=== PATIENT | female | born 1985 | race Caucasian/White ===

== ENCOUNTER → 2023-08-02 09:08 | Outpatient (CLI) | payer OTHER, SELFPAY ==
--- NOTE | 2023-08-02 | DI.MRI.S_ITS ---
PROCEDURE: MR KNEE RT WO CON INDICATIONS: RIGHT KNEE PAIN TECHNIQUE: Noncontrast sagittal PD fast spin echo and T2 fast spin echo with fat saturation, sagittal 3-D FLASH with fat saturation; coronal T1 spin echo and PD fast spin echo with fat saturation, and axial PD fast spin echo with fat saturation through the knee. COMPARISON: None. FINDINGS: Image quality: Excellent. Menisci: The medial and lateral menisci demonstrate normal morphology and internal signal. The meniscal root ligaments appear intact. Cruciate ligaments: The anterior and posterior cruciate ligaments appear intact. Medial structures: The medial collateral ligament appears intact. Visualized portions of the pes anserinus tendons appear normal. No abnormal bursal fluid. Lateral structures: The lateral collateral ligament demonstrates low-grade tearing at the femoral origin. The long and short heads of the biceps femoris tendon appear intact. The popliteus tendon appears normal. Iliotibial band appears normal. Anterior structures: The quadriceps and patellar tendons appear intact. Patellar alignment is normal. Mild lateral ventral trochlear prominence. Mild edema in the superolateral aspect of the infrapatellar fat pad. Bones and cartilage: No bone marrow contusions or fractures. Red marrow reconversion within the distal femur and proximal tibia. Moderate articular cartilage loss overlies the lateral patellar facet inferiorly. Joint space: There is physiologic knee joint fluid. No Plascencia's cyst. Normal appearing synovial plicae are incidentally noted. IMPRESSION: 1. No internal derangement. 2. Findings consistent with mild/early lateral patellofemoral friction syndrome in the appropriate clinical setting. 3. Low-grade lateral collateral ligament tear. Dictated by: Hunter Del Valle M.D. on 08/02/2023 at 10:29 Approved by: Hunter Del Valle M.D. on 08/02/2023 at 10:30
== END ==
PROVIDERS: PCP Family Medicine; Referring Provider Family Medicine; Visit Provider Family Medicine
DX: M25.561 Pain in right knee (principal); M25.361 Other instability, right knee; S83.421A Sprain of lateral collateral ligament of right knee, initial encounter
CPT/HCPCS: 73721

== ENCOUNTER 2024-03-14 11:09 | Emergency (ER) | payer OTHER, SELFPAY ==
[2024-03-14 11:25] VITALS: BP 136/85; PULSE 96; RESP 18; TEMP 36.7; O2SAT 97; BMI 44.9
== END 2024-03-14 14:01 | disposition left against medical advice (07) ==
PROVIDERS: Emergency Provider Emergency Medicine; PCP Family Medicine
DX: S69.92XA Unspecified injury of left wrist, hand and finger(s), initial encounter (principal); X58.XXXA Exposure to other specified factors, initial encounter
CPT/HCPCS: 99281